=== PATIENT | female | born 1990 | race Caucasian/White ===

== ENCOUNTER → 2018-08-16 | Outpatient (CLI) | payer OTHER ==
[~2018-08-16] MED LIST: Baclofen10 MG PO; CYCL10 PO; LAMO100 PO; LEVSOD150 PO; NAPR500 PO; Naprosyn500 MG PO; Norco 5-325 Ta1 EACH PO; SEASONIQUE
[2018-08-19 00:11] LABS: CHLAMYDIA TRACHOMATIS, NAA Negative (Negative); NEISSERIA GONORRHOEAE, NAA Negative (Negative)
== END | disposition home or self-care (01) ==
LOC: LAB SHORT 17:33 → LAB 17:33
PROVIDERS: Family Medicine
DX: Z11.3 Encounter for screening for infections with a predominantly sexual mode of transmission (principal)
CPT/HCPCS: 87491; 87591

== ENCOUNTER 2025-03-09 11:17 | Observation (INO) | payer BC ==
[~2025-03-09] VITALS: Ht 162.6 cm; Wt 90.4 kg
[2025-03-09] MEDS ORDERED: HYDROmorphone HCl/Pf 1MG SYR IV ONE (11:45)
[2025-03-09] MEDS ORDERED: Ondansetron HCl 2 MG / ML 2ML Vial IV ONE (11:45)
[2025-03-09] MEDS ORDERED: NS 1,000 ML IV SCH (11:45)
[2025-03-09] MEDS ORDERED: LEXAPRO (11:59)
[2025-03-09 12:03] LABS: BASOPHILS ABSOLUTE AUTO 0.08 K/mm3 (0.00-0.23); BASOPHILS PERCENT AUTO 1 % (0-2); EOSINOPHILS ABSOLUTE AUTO 0.14 K/mm3 (0.00-0.68); EOSINOPHILS PERCENT AUTO 1 % (0-6); Hematocrit 44.9 % (33.0-51.0); Hemoglobin 16.0 g/dL (11.5-16.0); IMMATURE GRAN ABSOLUTE AUTO 0.08 K/mm3 (0.00-0.10); IMMATURE GRAN PERCENT AUTO 1 % (0-1); LYMPHOCYTES ABSOLUTE AUTO 2.11 K/mm3 (0.84-5.20); LYMPHOCYTES PERCENT AUTO 15 % (21-46); MONOCYTES ABSOLUTE AUTO 0.75 K/mm3 (0.16-1.47); MONOCYTES PERCENT AUTO 5 % (4-13); Mean Corpuscular HGB Conc 35.6 g/dL (31.5-36.5); Mean Corpuscular Volume 90 fL (80-100); NEUTROPHILS ABSOLUTE AUTO 11.05 K/mm3 (1.96-9.15); NEUTROPHILS PERCENT AUTO 78 % (41-73); NRBC ABSOLUTE 0.00 K/mm3 (0.00-0.02); NRBC Auto 0.0 /100 WBC (0.0-0.2); Platelet Count 354 K/mm3 (150-400); RDW Coefficient Variation 12.8 % (11.7-14.2); RDW Standard Deviation 42.3 fL (35.1-46.3)
[2025-03-09 12:24] LABS: Alanine Aminotransfer (ALT/SGP 25.0 U/L (12-78); Albumin, Blood 4.6 g/dL (3.4-5.0); Albumin/Globulin Ratio 1.2 (0.8-1.8); Anion Gap 12.0 mmol/L (3-11); Aspartate Aminotrans (AST/SGOT 19.0 U/L (12-37); Bilirubin, Total 1.0 mg/dL (0.1-1.0); Blood Urea Nitrogen 11.0 mg/dL (8-24); CO2, Blood 20.0 mmol/L (21-32); Calcium, Blood 9.1 mg/dL (8.5-10.1); Chloride, Blood 107.0 mmol/L (98-108); Creatinine, Blood 1.07 mg/dL (0.40-1.00); Globulin, Blood 3.9 g/dL (2.2-4.0); Glucose, Blood 129.0 mg/dL (70-99); Potassium, Blood 3.4 mmol/L (3.5-5.5); Sodium, Blood 136.0 mmol/L (136-145); Total Protein, Blood 8.5 g/dL (6.4-8.2)
[2025-03-09 14:42] LABS: Source, Urine Clean Catch
[2025-03-09 14:51] LABS: Bilirubin, Urine Neg (Neg); Glucose Qualitative, Urine Neg (Neg); Ketones, Urine 1+ (Neg); Leukocyte Esterase, Urine 1+ (Neg); Protein, Urine 1+ (Neg); Specific Gravity, Urine 1.005 (1.003-1.022); Urobilinogen, Urine NORM (Normal)
[2025-03-09] MEDS ORDERED: Ketorolac Tromethamine 30mg Vial IV ONE (14:55)
[2025-03-09 15:05] LABS: Color, Urine Pale Yellow (P-Yellow)
[2025-03-09 15:06] LABS: Red Blood Cells, Urine 25-50 /hpf (0-2)
[2025-03-09] MEDS ORDERED: CefTRIAXone Sodium 1,000 MG in NS 100 ML IV ONE (15:30)
[2025-03-09] MEDS ORDERED: Potassium Chl 20MEQ/Water100ML 100 ML IV STA (15:51)
[2025-03-09] MEDS ORDERED: Ondansetron HCl 2 MG / ML 2ML Vial IV PRN (15:55)
[2025-03-09] MEDS ORDERED: HYDROmorphone HCl/Pf 1MG SYR IV PRN (15:55)
[2025-03-09] MEDS ORDERED: Ketorolac Tromethamine 15mg Vial IV PRN (16:00)
[2025-03-09] MEDS ORDERED: NS 1,000 ML IV ONE (16:24)
[2025-03-09 17:58] VITALS: BP 151/76
--- NOTE | 2025-03-09 18:00 | NUR ---
PT TO ROOM 328 FROM ER.
[2025-03-09] MEDS ORDERED: HYDHCL25 PO (18:27)
[2025-03-09 20:22] VITALS: BP 116/76
--- NOTE | 2025-03-10 04:04 | NUR ---
SHIFT SUMMARY NO ACUTE EVENTS DURING THIS SHIFT. PT ADMITTED TO THE MED FLOOR DURING PREVIOUS SHIFT. PT'S MOTHER BY THE BEDSIDE. @HS PT RESTING AND REPORTS PAIN 6/10. PRN TORADOL IV ADMINISTERED. FEW HRS LATER PT C/O N/V, PAIN LEVEL 9/10. MEDICATED WITH ZOFRAN IV PRN AND WITH DILAUDID IV PRN WITH GOOD EFFECTIVNESS. LR X1 BAD FINISHED INFUSING. PO FLUIDS BY THE BEDSIDE. PT IS A/O X4, PLEASANT, AND COOPERATIVE WITH CARE. AMBULATES INDEPENDENTLY TO THE RESTROOM. BED AT THE LOWEST POSITION, CALL LIGHT W/I REACH. PT IS ABLE TO MAKE HER NEEDS KNOWN.
[2025-03-10 05:13] VITALS: BP 150/93
[2025-03-10 05:55] LABS: BASOPHILS ABSOLUTE AUTO 0.04 K/mm3 (0.00-0.23); BASOPHILS PERCENT AUTO 0 % (0-2); EOSINOPHILS ABSOLUTE AUTO 0.18 K/mm3 (0.00-0.68); EOSINOPHILS PERCENT AUTO 2 % (0-6); Hematocrit 40.1 % (33.0-51.0); Hemoglobin 13.8 g/dL (11.5-16.0); IMMATURE GRAN ABSOLUTE AUTO 0.02 K/mm3 (0.00-0.10); IMMATURE GRAN PERCENT AUTO 0 % (0-1); LYMPHOCYTES ABSOLUTE AUTO 2.42 K/mm3 (0.84-5.20); LYMPHOCYTES PERCENT AUTO 25 % (21-46); MONOCYTES ABSOLUTE AUTO 0.79 K/mm3 (0.16-1.47); MONOCYTES PERCENT AUTO 8 % (4-13); Mean Corpuscular HGB Conc 34.4 g/dL (31.5-36.5); Mean Corpuscular Volume 92 fL (80-100); NEUTROPHILS ABSOLUTE AUTO 6.30 K/mm3 (1.96-9.15); NEUTROPHILS PERCENT AUTO 65 % (41-73); NRBC ABSOLUTE 0.00 K/mm3 (0.00-0.02); NRBC Auto 0.0 /100 WBC (0.0-0.2); Platelet Count 226 K/mm3 (150-400); RDW Coefficient Variation 13.0 % (11.7-14.2); RDW Standard Deviation 43.8 fL (35.1-46.3)
[2025-03-10] MEDS ORDERED: Levothyroxine Sodium 0.137 MG Tab PO SCH (06:00)
[2025-03-10 06:48] LABS: Alanine Aminotransfer (ALT/SGP 18.0 U/L (12-78); Albumin, Blood 3.3 g/dL (3.4-5.0); Albumin/Globulin Ratio 1.1 (0.8-1.8); Anion Gap 10.0 mmol/L (3-11); Aspartate Aminotrans (AST/SGOT 20.0 U/L (12-37); Bilirubin, Total 0.8 mg/dL (0.1-1.0); Blood Urea Nitrogen 8.0 mg/dL (8-24); CO2, Blood 20.0 mmol/L (21-32); Calcium, Blood 8.1 mg/dL (8.5-10.1); Chloride, Blood 110.0 mmol/L (98-108); Creatinine, Blood 1.08 mg/dL (0.40-1.00); Globulin, Blood 3.1 g/dL (2.2-4.0); Glucose, Blood 94.0 mg/dL (70-99); Potassium, Blood 3.8 mmol/L (3.5-5.5); Sodium, Blood 136.0 mmol/L (136-145); Total Protein, Blood 6.4 g/dL (6.4-8.2)
[2025-03-10] MEDS ORDERED: HYDROmorphone HCl/Pf 1MG SYR IV PRN (07:15)
[2025-03-10 07:44] VITALS: BP 135/84
[2025-03-10] MEDS ORDERED: Enoxaparin 40 MG/0.4 ML SYR SC SCH (09:00)
[2025-03-10] MEDS ORDERED: Ketorolac Tromethamine 15mg Vial IV STA (11:22)
[2025-03-10] MEDS ORDERED: Ketorolac Tromethamine 15mg Vial IV PRN (11:25)
[2025-03-10 16:01] VITALS: BP 134/76
[2025-03-10] MEDS ORDERED: ESCI10 PO (16:51)
[2025-03-10] MEDS ORDERED: DOCU100 PO (16:51)
[2025-03-10] MEDS ORDERED: ONDA4ODT MM (16:52)
[2025-03-10] MEDS ORDERED: SENN187 PO (16:53)
[2025-03-10] MEDS ORDERED: OXAYDO5 M1 PO (16:53)
[2025-03-10] MEDS ORDERED: TAMS.4ER PO (16:54)
--- NOTE | 2025-03-10 17:15 | NUR ---
PT DISCHARGED TO HOME. MEDICATIONS FAXED TO [facility]. HARD SCRIP FOR OXYODONE SENT WITH PT. DISCHARGE INSTRUCTIONS PROVIDED AND EDUCATED ON AT TIME OF DISCHARGE. ALL VALUABLES RETURNED AND SENT HOME WITH THE PT.
== END 2025-03-10 17:27 | disposition home or self-care (01) ==
LOC: ER 11:17 → MEDS 15:49
PROVIDERS: Emergency Medicine; ADMIT Student in an Organized Health Care Education/Training Program
DX: N13.2 Hydronephrosis with renal and ureteral calculous obstruction (principal); F31.81 Bipolar II disorder; E03.9 Hypothyroidism, unspecified; R94.4 Abnormal results of kidney function studies; E87.6 Hypokalemia; E87.20 Acidosis, unspecified; J45.909 Unspecified asthma, uncomplicated; G89.29 Other chronic pain; M54.9 Dorsalgia, unspecified; E66.9 Obesity, unspecified; Z68.34 Body mass index [BMI] 34.0-34.9, adult; Z79.890 Hormone replacement therapy; Z79.899 Other long term (current) drug therapy
CPT/HCPCS: 36415; 74177; 80053; 81001; 83605; 83690; 84443; 84703; 85025; 87086; 96361; 96365-59; 96367; 96372; 96375; 96376; 99285-25; A9270; G0378; J0696; J1171; J1650; J1885; J2405; J3480; J7030; J7120; Q9967